=== PATIENT | female | born 1950 | race American Indian/Alaskan Native ===

== ENCOUNTER 2018-08-20 10:41 | Outpatient (CLI) | payer MEDICARE, OTHER ==
--- NOTE | 2018-08-20 12:53 | Ultrasound Report ---
Head and neck soft tissues: Patient presents with a recently palpable mass on her right clavicle. The mass was initially tender but no longer. Imaging over the area of concern at approximately the mid clavicle demonstrates an inhomogeneous hypoechoic mass inseparable from the superior margin of the clavicle and seemingly compressing the medial inferior aspect of a supraclavicular muscle. The mass measures approximately 5 x 10 mm. There is no obvious flow with color imaging. According to our examination technologist the mass appeared firm and was not clearly movable. Impressions: Indeterminate mass. Recommendation: Clinical followup. If no resolution or CT scan is recommended.
== END 2018-08-20 10:42 | disposition home or self-care (01) ==
LOC: SPVWC 10:41
PROVIDERS: ATTEND Internal Medicine
DX: M54.12 Radiculopathy, cervical region (principal)
CPT/HCPCS: 76536